=== PATIENT | male | born 1970 | race Caucasian/White ===

== ENCOUNTER 2018-08-21 10:40 | Emergency (ER) | payer OTHER ==
[~2018-08-21] VITALS: Ht 177.8 cm; Wt 136.1 kg
[~2018-08-21 10:40] MED LIST: BACTRIM DS TABL1 TAB PO; CEFTIN500 MG PO; DIOVAN320 MG PO; FOSAMAX70 MG PO; LISINOPRIL20 MG PO; MYFORTIC360 MG PO; PREDNISONE2.5 MG PO; PROCARDIA90 MG/BLIS PO; PROGRAF1 MG PO; PROTONIX40 MG PO; TOPROL XL100 MG PO
[2018-08-21] MEDS ORDERED: MYFORTIC360 MG PO (10:57)
[2018-08-21] MEDS ORDERED: MILLIPRED5 MG PO (10:58)
[2018-08-21] MEDS ORDERED: TOPROL XL25 M1 PO (10:58)
[2018-08-21] MEDS ORDERED: LASIX20 MG PO (10:59)
[2018-08-21] MEDS ORDERED: TRICOR145 MG PO (10:59)
[2018-08-21] MEDS ORDERED: NIFE60TA3 PO (10:59)
[2018-08-21] MEDS ORDERED: MAGOX 400400 MG PO (11:00)
[2018-08-21] MEDS ORDERED: LOVAZA1 GM PO (11:00)
== END 2018-08-21 15:30 | disposition home or self-care (01) ==
LOC: ER 10:40
DX: S93.491A Sprain of other ligament of right ankle, initial encounter (principal); X50.1XXA Overexertion from prolonged static or awkward postures, initial encounter; Y93.89 Activity, other specified; Y92.89 Other specified places as the place of occurrence of the external cause; Y99.8 Other external cause status